=== PATIENT | male | born 1960 | race Caucasian/White ===

== ENCOUNTER 2019-10-31 11:47 | Emergency (ER) | payer MEDICAID ==
[~2019-10-31] VITALS: Ht 175.3 cm; Wt 78.7 kg
[~2019-10-31 11:47] MED LIST: LABE100T6; LISI2.5T; SIMV20TA19; SPIR100T4; WARF5TAB2
[2019-10-31 11:51] VITALS: BP 126/98
--- NOTE | 2019-10-31 12:01 | NUR ---
PT AMBULATORY TO ROOM T1 W/ C/O R KNEE PAIN AFTER PT TRIPPED OFF CURB AND LANDED TO R KNEE. PT DENIES HITTING HEAD. DENIES KNEE PAIN TO L KNEE. NO DEFORMITIES/SWELLING NOTED. PT HAS FULL ROM. PT RESTING IN CHAIR.
--- NOTE | 2019-10-31 12:30 | NUR ---
ASSUMED CARE OF PT. AWAITING RADIOLOGY
--- NOTE | 2019-10-31 13:51 | NUR ---
DC EDUCATION PROVIDED, PT DEMONSTRATES UNDERSTANDING. PT AMBULATED STEADILY TO DC WITH RN
== END 2019-10-31 13:53 | disposition home or self-care (01) ==
LOC: ED 13:45
DX: S86.811A Strain of other muscle(s) and tendon(s) at lower leg level, right leg, initial encounter (principal); G89.11 Acute pain due to trauma; M79.89 Other specified soft tissue disorders; Z76.0 Encounter for issue of repeat prescription; W19.XXXA Unspecified fall, initial encounter; Y93.01 Activity, walking, marching and hiking; Y92.098 Other place in other non-institutional residence as the place of occurrence of the external cause; Y99.8 Other external cause status
CPT/HCPCS: 99284

== ENCOUNTER 2020-05-23 13:38 | Emergency (ER) | payer MEDICAID ==
[~2020-05-23] VITALS: Ht 177.8 cm; Wt 77.5 kg
[2020-05-23 14:31] LABS: MEAN CORPUSCULAR HEMOGLOBIN 29.8 pg (27.5-34.5); MEAN CORPUSCULAR HGB CONC 33.3 g/dL (33.2-36.2); MEAN PLATELET VOLUME 9.3 fL (7.4-10.4); PLATELET COUNT 354 x10^3/uL (130-400); RED BLOOD COUNT 5.23 x10^6/uL (4.38-5.82); RED CELL DISTRIBUTION WIDTH 14.9 % (9.4-14.8)
[2020-05-23 14:43] LABS: ALBUMIN 3.8 g/dL (3.4-5.0); ANION GAP 12 mmol/L (5-15); CALCIUM 9.4 mg/dL (8.5-10.1); CHLORIDE 108 mmol/L (98-107); CREATININE 1.72 mg/dL (0.7-1.3)
[2020-05-23 14:58] LABS: MD YES
[2020-05-23 15:00] LABS: BAND#(MANUAL) 1.08 x10^3/uL; BANDS%(MANUAL) 8 % (0-7); BASOS#(MANUAL) 0.14 x10^3/uL (0-0.1); BASOS% (MANUAL) 1 % (0-1); LYMPH#(MANUAL) 2.03 x10^3/uL (1-3.4); LYMPHS% (MANUAL) 15 % (22-44); METAMYELOCYTES# (MANUAL) 0.14 x10^3/uL (0-0); METAMYELOCYTES% (MANUAL) 1 % (0-1); MONOS#(MANUAL) 1.49 x10^3/uL (0.3-2.7); MONOS% (MANUAL) 11 % (2-9); SEG#(MANUAL) 8.64 x10^3/uL (1.8-6.8); SEGS% (MANUAL) 64 % (42-75)
[2020-05-23 15:01] LABS: <PLATELET ESTIMATE> ADEQUATE; <PLT MORPHOLOGY> NORMAL PLT MORPH; ANISOCYTOSIS 1+
[2020-05-23] MEDS ORDERED: CEFTRIAXONE 1,000 MG ONE (15:09)
[2020-05-23 15:14] VITALS: BP 141/77
[2020-05-23] MEDS ORDERED: CEFTRIAXONE 1,000 MG IM ONE (15:30)
== END 2020-05-23 15:32 | disposition home or self-care (01) ==
LOC: ED 14:02
DX: L03.115 Cellulitis of right lower limb (principal); L03.116 Cellulitis of left lower limb; Z76.0 Encounter for issue of repeat prescription; I51.7 Cardiomegaly; R00.0 Tachycardia, unspecified; I21.9 Acute myocardial infarction, unspecified; J44.9 Chronic obstructive pulmonary disease, unspecified; F17.290 Nicotine dependence, other tobacco product, uncomplicated
CPT/HCPCS: 36415; 71045; 80048; 82040; 85025; 93005; 96372; 99285; J0696

== ENCOUNTER 2020-07-16 11:26 | Emergency (ER) | payer MEDICAID ==
[~2020-07-16] VITALS: Ht 177.8 cm; Wt 76.7 kg
[2020-07-16 11:27] VITALS: BP 136/107
== END 2020-07-16 14:01 | disposition home or self-care (01) ==
LOC: ED 13:08
DX: G89.29 Other chronic pain (principal); M79.676 Pain in unspecified toe(s); M10.9 Gout, unspecified; Z76.0 Encounter for issue of repeat prescription; Z79.899 Other long term (current) drug therapy
CPT/HCPCS: 93005; 99283